=== PATIENT | female | born 1985 | race Hispanic/Latino ===

== ENCOUNTER 2022-03-20 10:01 | Outpatient (CLI) | payer OTHER | END 2022-03-20 10:02 | disposition home or self-care (01) | LOC: CSHLAB 10:01 | PROVIDERS: ATTEND Obstetrics & Gynecology | DX: Z20.822 Contact with and (suspected) exposure to COVID-19 (principal) | CPT/HCPCS: 87811 ==

== ENCOUNTER 2022-03-24 23:46 | Inpatient (IN) | payer OTHER ==
[~2022-03-24 23:46] MED LIST: Acetaminophen 500 MG TAB PO PRN; Butorphanol Tartrate 1 MG/ML VIAL SLOW IVP PRN; Carboprost 250 MCG/ML AMP IM PRN; Diphenoxylate HCl/Atropine Tablet PO PRN; Docusate 100 MG CAP PO PRN; HYDROcodone/Acetaminophen 5/325 mg Tablet PO PRN; Ibuprofen 800 MG TAB PO PRN; Lidocaine 1% (PF) 30 ML VIAL SC PRN; Misoprostol 200 MCG TAB PR PRN; NS w/ Oxytocin 30 units 500 ML IV SCH; Ondansetron PF 4 MG/2 ML Vial IVP PRN; Penicillin G Potassium 5 MILL.UNITS in Sodium Chloride 0.9% 100 ML IVPB SCH; Promethazine HCl 25 MG/ML VIAL IM PRN; hydrALAZINE 20 MG/ML VIAL SLOW IVP PRN
[2022-03-25 06:48] LABS: Hemoglobin 13.7 g/dL (12.0-15.5); Mean Corpuscular HGB CONC 33.7 g/dL (32.0-36.0); Mean Corpuscular Hemoglobin 29.8 pg (27.0-33.0); Mean Corpuscular Volume 88.5 fl (81.6-98.3); Mean Platelet Volume 11.8 fl (7.4-10.4); Platelet Count 239 10x3/uL (150-450); RBC Distribution Width 14.8 % (11.5-14.5); Red Blood Cell (RBC) Count 4.59 10x6/uL (3.90-5.03); White Blood Cell (WBC) Count 8.8 10x3/uL (3.5-10.5)
[2022-03-25] MEDS: Lactated Ringer's 1,000 ML IV SCH ×2 (07:00→11:04)
[2022-03-25] MEDS ORDERED: ePHEDrine Sulfate 50 MG/10 ML VIAL ONE (07:15)
[2022-03-25] MEDS ORDERED: Bupivacaine PF 0.5% 30 ML VIAL ONE (07:15)
[2022-03-25 07:17] LABS: Hep B Surf Ag Non-Reactive S/CO (NonReactive); Syphilis Antibody Nonreactive (Nonreactive); Syphilis Antibody Index 0.06 S/CO (<1.00 Non-Reactive)
[2022-03-25] MEDS ORDERED: NS w/ Oxytocin 30 units 500 ML ONE (07:28)
[2022-03-25] MEDS ORDERED: Penicillin G Potassium 5 MILL.UNITS VIAL ONE (07:28)
[2022-03-25 07:40] LABS: HBSAg Index 0.18 S/CO (0-0.99)
[2022-03-25 08:36] VITALS: BMI 39.6
[2022-03-25] MEDS: Penicillin G 2.5 MILL.units 2.5 MILL.UNITS in Premix Bag 1 BAG IVPB SCH ×4 (11:04→19:56)
[2022-03-25] MEDS ORDERED: Fentanyl 2 mcg/Bup 0.1% Cadd 100 ML ONE (12:52)
[2022-03-25] MEDS ORDERED: diphenhydrAMINE 50 MG/ML VIAL IVP PRN (13:35)
[2022-03-25] MEDS ORDERED: Moisturizing Cream (Eucerin) 113 GM JAR TOP PRN (13:35)
[2022-03-25] MEDS ORDERED: Naloxone HCl 0.4 mg/ml Vial IVP PRN ×2 (13:35)
[2022-03-25] MEDS ORDERED: Lactated Ringer's 500 ML IV PRN (13:35)
[2022-03-25] MEDS ORDERED: Ondansetron PF 4 MG/2 ML Vial IVP PRN ×2 (13:35→22:43)
[2022-03-25] MEDS ORDERED: ePHEDrine Sulfate 50 MG/10 ML VIAL SLOW IVP PRN (13:35)
[2022-03-25] MEDS ORDERED: Promethazine HCl 25 MG/ML VIAL IM PRN ×2 (13:35→22:43)
[2022-03-25] MEDS ORDERED: Acetaminophen 325 MG TAB PO PRN (13:35)
[2022-03-25] MEDS ORDERED: Communication Order-Pharmacy FS SCH (13:45)
[2022-03-25] MEDS ORDERED: Fentanyl 2 mcg/Bupivacaine 0.1% Cassette 100 ML EPIDURAL SCH (13:45)
[2022-03-25] MEDS ORDERED: hydrALAZINE 20 MG/ML VIAL SLOW IVP PRN (22:43)
[2022-03-25] MEDS ORDERED: HYDROcodone/Acetaminophen 5/325 mg Tablet PO PRN (22:43)
[2022-03-25] MEDS ORDERED: NS w/ Oxytocin 30 units 500 ML IV SCH (22:43)
[2022-03-25] MEDS ORDERED: Zolpidem Tartrate 5 MG TAB PO PRN (22:43)
[2022-03-25] MEDS ORDERED: Lanolin Ointment 7 GM TUBE TOP PRN (22:43)
[2022-03-25] MEDS ORDERED: Boostrix 0.5 ML (Tdap) VIAL IM ONE (22:43)
[2022-03-25] MEDS ORDERED: Preparation H Ointment 28 GM TUBE PR PRN (22:43)
[2022-03-25] MEDS ORDERED: Bisacodyl 10 MG SUPP PR PRN (22:43)
[2022-03-25] MEDS ORDERED: Benzocaine-Menthol 82.5 ML CAN TOP PRN (22:43)
[2022-03-25] MEDS ORDERED: Measles/Mumps/Rubella 10 MCG/0.5 ML VIAL SC ONE (22:43)
[2022-03-25] MEDS ORDERED: Milk Of Magnesia 30 ML UDCUP PO PRN (22:43)
[2022-03-25] MEDS ORDERED: diphenhydrAMINE 25 MG CAP PO PRN (22:43)
[2022-03-25] MEDS: Docusate 100 MG CAP PO SCH (23:20)
[2022-03-25] MEDS: Ibuprofen 800 MG TAB PO SCH (23:20)
[2022-03-26 05:06] LABS: Mean Corpuscular HGB CONC 34.1 g/dL (32.0-36.0); Mean Corpuscular Hemoglobin 29.9 pg (27.0-33.0); Mean Corpuscular Volume 87.8 fl (81.6-98.3); Mean Platelet Volume 11.9 fl (7.4-10.4); Platelet Count 198 10x3/uL (150-450); RBC Distribution Width 14.8 % (11.5-14.5); Red Blood Cell (RBC) Count 4.01 10x6/uL (3.90-5.03); White Blood Cell (WBC) Count 10.5 10x3/uL (3.5-10.5)
[2022-03-26] MEDS: Ibuprofen 800 MG TAB PO SCH ×3 (05:54→21:34)
[2022-03-26] MEDS: Lactated Ringer's 1,000 ML IV SCH (06:33)
[2022-03-26] MEDS: Ferrous Sulfate 325 MG TAB PO SCH ×2 (08:37→16:54)
[2022-03-26] MEDS: Prenatal Vitamin 1 TAB PO SCH (08:39)
[2022-03-26] MEDS: Docusate 100 MG CAP PO SCH ×2 (08:39→21:34)
[2022-03-27] MEDS: Ibuprofen 800 MG TAB PO SCH ×2 (06:09→13:54)
[2022-03-27] MEDS: Ferrous Sulfate 325 MG TAB PO SCH ×2 (08:23→15:11)
[2022-03-27] MEDS: Docusate 100 MG CAP PO SCH (08:24)
[2022-03-27] MEDS: Prenatal Vitamin 1 TAB PO SCH (08:24)
[2022-03-27 11:19] VITALS: BP 119/74; TEMP 98.7
== END 2022-03-27 19:45 | disposition home or self-care (01) | DRG 806 ==
LOC: CSHLD 23:46 → UNDOADMIN 03-25 05:46 → CSHPP 03-25 22:20
PROVIDERS: ADMIT Obstetrics & Gynecology; ATTEND Obstetrics & Gynecology
PROC: 10E0XZZ Delivery of Products of Conception, External Approach (ICD-10-PCS; principal; 2022-03-25)
DX: O10.92 Unspecified pre-existing hypertension complicating childbirth (principal); O98.52 Other viral diseases complicating childbirth; Z37.0 Single live birth; Z3A.38 38 weeks gestation of pregnancy; B00.9 Herpesviral infection, unspecified
CPT/HCPCS: 36415; 51702; 76815; 85027; 86780; 86850; 86900; 86901; 87340; J2540; J2590; J3490; J7120; S0020